=== PATIENT | male | born 1995 ===

== ENCOUNTER 2020-09-05 09:51 | Outpatient (CLI) | payer OTHER ==
[2020-09-05 11:20] VITALS: BP 126/92
--- NOTE | 2020-09-05 11:20 | SLEEP CARE CONSULTATION ---
Information from patient questionnaire entered by Laura Akhtar. I have reviewed and concur with the information entered by Laura Akhtar. This document represents the service I personally performed and the decisions made by me, Mendy Vega ARNP. History of Present Illness Service Date and Time: 09/05/2020 0951 Reason for Visit: New patient Chief Complaint: reports: Unrefreshed sleep, Snoring, Excessive daytime sleepiness, Observed pauses in breathing, Fatigue, Frequent awakenings at night Date of Onset: 5 years Usual bedtime: 9 pm Time it takes to fall asleep: 2-3 hours Snores at night: Yes Observed to quit breathing while asleep: Yes Sleeps alone due to snoring: Yes Number of times waking at night: 4-5 Reasons for waking at night: reports: Choking, Snoring, Bathroom Toss, Turn, or Twitch while sleeping: Yes Recalls having dreams: No Usually gets out of bed at: 5:30 am Feels refreshed in the morning: No Morning headache: Yes (headaches all the time since concussion) Sleepy or fatigued during the day: Yes Ever fallen asleep while driving: Yes (drowsy driving, no accidents) Takes day naps: No Dreams during day naps: No Prior sleep studies: No Additional HPI information: I had the pleasure of seeing DELANO MARCOS today regarding the possibility of him having a sleep disorder. His current complaints are snoring, observed pauses in breathing, frequent night awakenings, unrefreshed sleep, excessive daytime sleepiness and fatigue. His has told him he snores bad and she has seen him choke in his sleep. He is not usually sleeping in same room anymore due to his snoring. He takes 2-3 hours to get to sleep. He is working long hours for work but is unable to get restful sleep. - Parasomnia Symptoms Ever been unable to move upon waking from sleep: No Walks in sleep: No Talks in sleep: No Ever acted out dreams in sleep: No Ever felt weak in the knees when startled or emotional: Yes Bothered by creepy, crawly, restless sensations in legs: Yes (through the day) Problems with memory or concentration: Yes (sometimes forgets things) Subjective Initial [place] Sleepiness Scale score: 16 (in 2020) Past Medical History Past Medical History: reports: Other (back problems). denies: Hypertension, Diabetes, Arrythmia, Anxiety, Depression, Mood disorder, GERD, Attention deficit Social History The patient's occupation is a Active . Patient is and lives in [place]. Have you smoked in the past 12 months: No Alcohol use: Yes Alcohol amount and frequency: 2 drinks 1-2 times a week Caffeine use: No Family History Family history of sleep disordered breathing: No Family Hx Sleep Apnea: Father: Snoring Allergies and Home Medications Drug allergies reviewed: Yes (NKDA) Home medication list reviewed: Yes (migrain medication, possibly a -triptan, just started last week) Allergy and home medication list: Flexeril for back pain Review of Systems Weight gain over past 5 years: 30 Cardiovascular: reports: high blood pressure (at doctor's offices lately). denies: irregular heart rate or pulse Gastrointestinal: denies: heartburn Neurological: reports: headaches Psychiatric: denies: anxiety, depression Ear/Nose/Throat: reports: dry mouth/throat (wakes up dry and stays dry), wisdom teeth removed. denies: tonsillectomy (he is not sure) Musculoskeletal: reports: joint pain, neck pain, back pain, muscle pain or cramping Physical Exam Blood Pressure: 126/92 Cuff size: wrist Heart Rate: 72 O2 Saturation: 98 Height: 5 ft 7 in Weight: 184 lb Body Mass Index: 28.8 BMI Classification: Overweight Neck circumference: 16.25 (inches) Nostrils: patent to airflow Turbinates: swollen Mouth and throat: narrow oropharynx Uvula visualization: 50% Mallampati Class II Tongue: enlarged in size with teeth luciano on lateral edges Tonsils: small Chin and jaw: normal size and position Neck: normal w/o lymphadenopathy or thyromegaly Heart: regular rate and rhythm Lungs: clear bilaterally Impression and Plan 1. Suspected Obstructive Sleep Apnea-Hypopnea Syndrome, as previously diagnosed.suggested by a history of loud and irregular snoring, observed cessation of breath while asleep, gasping or choking in sleep, morning headache, frequent awakening during the night, unrefreshed sleep, cognitive impairment, and excessive daytime sleepiness. Narrow oropharynx and obesity are common predisposing factors for obstructive sleep apnea-hypopnea syndrome. I recommend proceeding to polysomnography to confirm the diagnosis and to assess severity. If the patient has significant sleep disordered breathing, a manual CPAP titration study will also be performed to find the optimal treatment pressure. I informed the patient of what the sleep studies involve and after some discussion, obtained agreement to proceed. The pathophysiology of obstructive sleep apnea-hypopnea syndrome was discussed with the patient and health risks of cardiovascular and cerebrovascular disease if not treated. [facility] brochure for obstructive sleep apnea-hypopnea syndrome given and reviewed. Risks of drowsy driving discussed in detail and patient advised to avoid long distance driving and to mold puller at the first sign of drowsiness. Patient agreed to plan. [facility] drowsy driving brochure given. * Schedule polysomnography +- manual CPAP titration study and return in 1-2 weeks after the study to discuss result and initiate therapy. * Avoid long distance driving or driving when feeling sleepy. * Avoid alcohol, sedative and muscle relaxant around bedtime. * Attempt to lose weight. * Review instructions provided by trained office staff on how to prepare for the sleep study. * Return for follow-up after sleep study completed. Counseling Topics: Weight loss health impact Visit Type: In Office Time Spent with Patient (minutes): 30 Provider Statement: I spent 100% of the Face to Face Visit with the patient with greater than 50% spent counseling the patient and coordination of care.
== END 2020-09-05 09:52 | disposition home or self-care (01) ==
LOC: SC 09:51
PROVIDERS: ATTEND Nurse Practitioner Family
DX: R06.83 Snoring (principal); E66.3 Overweight; Z68.28 Body mass index [BMI] 28.0-28.9, adult; R06.81 Apnea, not elsewhere classified; R51.9 Headache, unspecified; G47.8 Other sleep disorders; R41.89 Other symptoms and signs involving cognitive functions and awareness; G47.10 Hypersomnia, unspecified
CPT/HCPCS: 99203; 99212

== ENCOUNTER 2020-09-11 12:08 | Outpatient (CLI) | payer OTHER | END 2020-09-11 12:09 | disposition home or self-care (01) | LOC: SC 12:08 | PROVIDERS: ATTEND Nurse Practitioner Family | DX: G47.33 Obstructive sleep apnea (adult) (pediatric) (principal); E66.3 Overweight; Z68.28 Body mass index [BMI] 28.0-28.9, adult | CPT/HCPCS: 95806 ==

== ENCOUNTER 2020-09-17 13:05 | Outpatient (CLI) | payer OTHER ==
--- NOTE | 2020-09-17 13:40 | SLEEP CARE CONSULTATION ---
Information from patient questionnaire entered by Bobbi Hansen. I have reviewed and concur with the information entered by Bobbi Hansen. This document represents the service I personally performed and the decisions made by me, Mendy Vega ARNP. History of Present Illness Service Date and Time: 09/17/2020 1305 Initial [place] Sleepiness Scale score: 16 (in 2020) Current [place] Sleepiness Scale score: 13 Additional HPI information: DELANO MARCOS returns for follow up and results of the recently performed home sleep study. I explained the pathophysiology behind obstructive sleep apnea. We then spent quite a bit of time discussing different treatment options. For mild obstructive sleep apnea, surgery and oral appliance are alternatives to nasal CPAP therapy but in moderate or severe cases, nasal CPAP is the most effective and reliable treatment. Because apnea is primarily in supine position, then positional management therapy could be effective. Methods discussed such as positioning with pillows, using a T-shirt with tennis balls in the back, and shown commercial products that have a pillow format on back to prevent supine sleep. I reviewed the impact of weight changes on sleep apnea and strongly recommended losing weight. After some discussion, the patient opted to go with the nasal CPAP therapy. Nasal autoCPAP set at 4-15 cmH20 will be ordered with rationale explained. A manual titration study will be ordered if unable to find optimal pressure with office adjustments. I explained how CPAP machine works with sample devices Respironics Dreamstation and [employer] [id number] and what to expect when using the machine. Using CPAP every night in order to get used to it was emphasized. Patient advised to put CPAP mask on before getting into bed so as not to fall asleep without CPAP. To assist acclimation to CPAP use, it could also be used for a short time during day while reading or watching TV. The patient was instructed to call the CPAP supplier to discuss any mechanical problem that may occur. If the mask given is uncomfortable or is difficult to keep on through the night even with adjustment, contact the CPAP supplier as many will replace with another mask style if notified before 30 days. If snoring or perceives is not getting enough air or too much air from the machine, notify this office. [facility] patient education PAP tips reviewed and given to patient. Patient counseled not drink alcohol less than 4 hours before bedtime as it can increase snoring and apnea. Patient was cautioned about risks of drowsy driving until sleepiness symptoms resolve. Sleep Study - Results Type of Sleep Study: Home sleep study Prior sleep studies: No Polysomnography/Home Sleep Study results: Physician Impression: The quality of the study is good. The length of the study is adequate (> 240 minutes). Please also see the tabulated and graphic data. 1. Obstructive Sleep Apnea-Hypopnea (ICD-10 G47.33), mild, with an AHI of 8.1/hr and ingris SaO2 of 87%. During the study, the patient had 33 apneas (33 obstructive, 0 central, 0 mixed) and 37 hypopneas. The longest episode lasted 78.5 seconds. The respiratory events occurred more frequently during supine sleep (supine AHI was 10.2 and non-supine, 5.94). 2. Hypoxemia (ICD-10 R09.02), mild, with the lowest oxygen saturation of 87 % and 0.0 minutes with SaO2 under 90%. Baseline oxygen saturation was normal (Average oxygen saturation was 94%). Allergies and Home Medications Home medication list reviewed: Yes (Flexeril for his back) Review of Systems Review of systems same as previous: Yes (no changes) Physical Exam Heart Rate: 79 O2 Saturation: 98 Height: 5 ft 7 in Weight: 190 lb Body Mass Index: 29.7 BMI Classification: Overweight Impression and Plan 1. Obstructive Sleep Apnea-Hypopnea Syndrome, mild, with lowest oxygen saturatio n of 87%. Obviously this is the cause of the patients symptoms of unrefreshed sleep, and excessive daytime sleepiness. Positive pressure therapy could benefit his overall health and reduce cardiovascular or cerebrovascular adverse events. As mentioned above, the patient will be started on nasal autoCPAP therapy with pressure set at 4-15 cmH2O. A manual titration study will be completed if unable to find optimal treatment pressure with office adjustments. Compliance guidelines also reviewed. A copy of compliance guidelines will be given for reference at check out. Because the apnea is more severe supine, I instructed to avoid sleeping supine using pillow positioning until able to start CPAP use. * Nasal auto CPAP therapy, pressure at 4-15 cm H2O. * Attempt to lose weight. * Avoid alcohol consumption near bedtime. * Avoid supine sleep until using CPAP. * The patient is again cautioned about driving until sleepiness completely resolves. * Return one month after CPAP obtained. I will assess response to therapy and compliance at that time. Counseling Topics: Weight loss health impact Visit Type: In Office Time Spent with Patient (minutes): 20 Provider Statement: I spent 100% of the Face to Face Visit with the patient with greater than 50% spent counseling the patient and coordination of care.
== END 2020-09-17 13:06 | disposition home or self-care (01) ==
LOC: SC 13:05
PROVIDERS: ATTEND Nurse Practitioner Family
DX: G47.33 Obstructive sleep apnea (adult) (pediatric) (principal); E66.3 Overweight; Z68.29 Body mass index [BMI] 29.0-29.9, adult
CPT/HCPCS: 99212; 99213

== ENCOUNTER 2020-10-07 08:47 | Outpatient (CLI) | payer OTHER ==
--- NOTE | 2020-10-07 11:51 | MRI Report ---
PROCEDURE: Lumbar Spine W/O INDICATIONS: DORSALGIA TECHNIQUE: Noncontrast sagittal T1 spin echo and T2 fast echo, sagittal STIR, axial T1 and T2 fast spin echo thr ough the lumbar spine. In cases with scoliosis, additional coronal T2 fast spin echo may be performe d. COMPARISON: None. FINDINGS: Image quality: Excellent. Alignment and Curvature: No plain films are available for comparison. Thus, for numbering purposes, 5 lumbar type vertebral bodies will be presumed for the current report. This should be confirmed with plain film correlation prior to any lumbar spinal intervention. There is loss of normal lumbar lordo sis. Bone Marrow: Marrow is of normal overall signal. No acute vertebral body compression fractures. L1 hemangioma. L3 hemangioma. S2 hemangioma. Spinal Cord: Conus medullaris terminates at the L1-L2 disc space level. Visualized cord demonstrate s normal signal and size. Paraspinous Soft Tissues: No paravertebral masses. T12-L1: Normal in appearance. L1-L2: Normal in appearance. L2-L3: Normal in appearance. L3-L4: Normal in appearance. L4-L5: Normal in appearance. L5-S1: Normal in appearance. IMPRESSION: 1. Loss of normal lumbar lordosis, which may indicate muscle spasm. 2. No significant canal, nor foraminal stenosis. No neural impingement. Reviewed by: Tylor Franco MD on 10/07/2020 10:50 AM [place] Approved by: Tylor Franco MD on 10/07/2020 10:50 AM [facility] Station ID: [id number]
== END 2020-10-07 08:48 | disposition home or self-care (01) ==
LOC: DI 08:47
PROVIDERS: ATTEND Family Medicine
DX: M54.9 Dorsalgia, unspecified (principal); I10 Essential (primary) hypertension

== ENCOUNTER 2020-12-09 13:32 | Outpatient (CLI) | payer OTHER ==
--- NOTE | 2020-12-09 14:00 | SLEEP CARE CONSULTATION ---
Information from patient questionnaire entered by Bobbi Hansen. I have reviewed and concur with the information entered by Bobbi Hansen. This document represents the service I personally performed and the decisions made by me, Mendy Vega ARNP. History of Present Illness Service Date and Time: 12/09/2020 1332 Previous diagnosis: Mild, Obstructive Sleep Apnea-Hypopnea Syndrome AHI: 8.1 Reason for follow up: first compliance (Setup 11/05/20) Equipment type: CPAP Equipment obtained from: Other ([facility]; getting supplies as needed) Mask style: Full face Backup mask available: No (encouraged to keep old mask when replaced) Last cushion change: 1 month Prior sleep studies: No Year and Where: 2020 [facility] Type of Sleep Study: Home sleep study HPI additional information: DELANO MARCOS was diagnosed to have mild, AHI 8.1, obstructive sleep apnea- hypopnea syndrome and returned today for CPAP therapy first compliance follow- up. CPAP Compliance Data - Data Reviewed with Patient Average duration of nightly device use: 5 h 18 min Compliance rate %: 70 Current pressure setting (cmH2O): 4-15 (median 5.4, avg 8.1, max 9.4) Average residual AHI: 1.3 Subjective Missed days of use due to: reports: mask issues, travel Patient concerns: reports: condensation in mask/hose (only happened once), dry mouth, nose, throat. denies: aerophagia, mask discomfort, air blowing in eyes, mask leak noise, nasal congestion, epistaxis Observed to snore while using device: No Current pressure setting perceived as: comfortable On therapy, patient: reports: sleeping better, awakening more refreshed, being more awake and alert during the day, more rested overall. denies: drowsiness while driving Initial [place] Sleepiness Scale score: 16 (in 2020) Current [place] Sleepiness Scale score: 14 Allergies and Home Medications Home medication list reviewed: Yes (no changes) Review of Systems Review of systems same as previous: No (CT scan of nose, has deviated septum) Physical Exam Vital signs obtained and entered by: Heart Rate: 84 O2 Saturation: 98 Height: 5 ft 7 in Weight: 180 lb Body Mass Index: 28.1 BMI Classification: Overweight Impression and Plan 1. Obstructive Sleep Apnea-Hypopnea Syndrome, mild, with fair treatment compliance at 70% and good apnea control. On CPAP therapy, the patient has better sleep quality and is more rested overall. I will adjust his pressure to reflect what he is using to 6-9 cmH2O. He is getting used to wearing the mask at night but sometimes he just forgets to put it on before he falls asleep. He had one night when he got some water dripping into his mouth but this has not reoccurred. He does wake up with some dry mouth most mornings. Oral dryness can be reduced by adjusting humidity setting higher or heated hose lower or by adjusting both settings. Verbal instructions given on how to change humidity and heated hose settings with rationale explaining why to change. He voiced understanding and agreement with plan of care. Patient's apnea severity and rationale for treatment to reduce apnea, improve sleep quality and reduce cardiovascular and cerebrovascular events was reviewed. * Change autoCPAP pressure to 6-9 cmH2O * Notify me if snoring with mask or feeling that the pressure is too much or too little * Attempt to lose weight * Call this office if any problems using CPAP * Return for follow up in 1-2 months, or sooner if concerns arise Counseling Topics: Spare mask, Weight loss health impact Visit Type: In Office Time Spent with Patient (minutes): 21 Provider Statement: I spent 100% of the Face to Face Visit with the patient with greater than 50% spent counseling the patient and coordination of care.
== END 2020-12-09 13:33 | disposition home or self-care (01) ==
LOC: SC 13:32
PROVIDERS: ATTEND Nurse Practitioner Family
DX: G47.33 Obstructive sleep apnea (adult) (pediatric) (principal); E66.3 Overweight; Z68.28 Body mass index [BMI] 28.0-28.9, adult
CPT/HCPCS: 99212; 99213

== ENCOUNTER 2021-01-13 13:52 | Outpatient (CLI) | payer OTHER ==
--- NOTE | 2021-01-13 14:37 | SLEEP CARE CONSULTATION ---
Information from patient questionnaire entered by Laura Akhtar. I have reviewed and concur with the information entered by Laura Akhtar. This document represents the service I personally performed and the decisions made by me, Mendy Vega ARNP. History of Present Illness Service Date and Time: 01/13/2021 1352 Previous diagnosis: Mild, Obstructive Sleep Apnea-Hypopnea Syndrome AHI: 8.1 (in 2020) Reason for follow up: one month (with pressure change) Equipment type: CPAP Equipment obtained from: Other ([facility]; getting supplies as needed) Mask style: Full face Backup mask available: Yes (other mask) Prior sleep studies: Yes Year and Where: 2020 - [facility] Type of Sleep Study: Home sleep study HPI additional information: DELANO MARCOS was diagnosed to have mild, AHI 8.1, obstructive sleep apnea- hypopnea syndrome and returned today for CPAP therapy one month pressure change follow-up. CPAP Compliance Data - Data Reviewed with Patient Average duration of nightly device use: 4 hr 9 min Compliance rate %: 23 Current pressure setting (cmH2O): 6-9 Humidity settin Average residual AHI: 1.9 Subjective Missed days of use due to: reports: travel (left at home when away for two we eks), other (his does not like it, getting tangled in hose) Patient concerns: reports: dry mouth, nose, throat (dry mouth, sometimes). denies: aerophagia, mask discomfort, air blowing in eyes, mask leak noise, condensation in mask/hose, nasal congestion, epistaxis, other Observed to snore while using device: No Current pressure setting perceived as: comfortable On therapy, patient: reports: sleeping better, awakening more refreshed, being more awake and alert during the day, more rested overall. denies: drowsiness while driving Initial [place] Sleepiness Scale score: 16 (in 2020) Current [place] Sleepiness Scale score: 12 Allergies and Home Medications Home medication list reviewed: Yes (no changes) Review of Systems Review of systems same as previous: Yes (no changes) Physical Exam Heart Rate: 94 O2 Saturation: 97 Height: 5 ft 7 in Weight: 179 lb Body Mass Index: 28.0 BMI Classification: Overweight Impression and Plan 1. Obstructive Sleep Apnea-Hypopnea Syndrome, mild, with poor treatment compliance and good apnea control. On CPAP therapy, the patient has better sleep quality and is more rested overall. His current compliance is reduced because he went on vacation for 2 weeks and did not take the CPAP. His is also not liking the machine because she gets tangled up in the house. He really likes the machine and wants to continue using it. He states he will bring his compliance up with problems in the next few weeks because his has just deployed for 9 months. Compliance guidelines reviewed for insurance coverage. Patient was counseled on the difference between meeting compliance and optimal use of CPAP. Optimal use of CPAP is use of CPAP with all sleep to obtain maximum benefit of treatment. Patient is encouraged to use CPAP with all sleep. He voiced understanding and agreement with plan of care. Patient's apnea severity and rationale for treatment to reduce apnea, improve sleep quality and reduce cardiovascular and cerebrovascular events was reviewed. * Continue auto CPAP pressure at 6-9 cmH2O * Notify me if snoring with mask or feeling that the pressure is too much or too little * Attempt to lose weight * Call this office if any problems using CPAP * Return for follow up in 1-2 months, or sooner if concerns arise Counseling Topics: Spare mask, Weight loss health impact Visit Type: In Office Time Spent with Patient (minutes): 13 Provider Statement: I spent 100% of the Face to Face Visit with the patient with greater than 50% spent counseling the patient and coordination of care.
== END 2021-01-13 13:53 | disposition home or self-care (01) ==
LOC: SC 13:52
PROVIDERS: ATTEND Nurse Practitioner Family
DX: G47.33 Obstructive sleep apnea (adult) (pediatric) (principal); E66.3 Overweight; Z68.28 Body mass index [BMI] 28.0-28.9, adult
CPT/HCPCS: 99212

== ENCOUNTER 2021-02-24 13:44 | Outpatient (CLI) | payer OTHER ==
--- NOTE | 2021-02-24 14:15 | SLEEP CARE CONSULTATION ---
Information from patient questionnaire entered by Laura Akhtar. I have reviewed and concur with the information entered by Laura Akhtar. This document represents the service I personally performed and the decisions made by , Mendy Vega ARNP. History of Present Illness Service Date and Time: 02/24/2021 1344 Previous diagnosis: Mild, Obstructive Sleep Apnea-Hypopnea Syndrome AHI: 8.1 (in 2020) Reason for follow up: other (6 week) Equipment type: CPAP Equipment obtained from: Other ([facility]; getting supplies as needed) Mask style: Nasal Backup mask available: No (will need to keep old mask when replaced) Last cushion change: 1 week ago Prior sleep studies: Yes Year and Where: 2020 - [facility] Type of Sleep Study: Home sleep study HPI additional information: DELANO MARCOS was diagnosed to have mild, AHI 8.1, obstructive sleep apnea- hypopnea syndrome and returned today for CPAP therapy 6 week follow-up. CPAP Compliance Data - Data Reviewed with Patient Average duration of nightly device use: 4 hr 4 min Compliance rate %: 38 (42 days) Current pressure setting (cmH2O): 6-9 (median 6.7, avg 8.3, max 8.8) Humidity settin Average residual AHI: 6.2 Central apnea: 0.6 Obstructive apnea: 1.9 Subjective Missed days of use due to: reports: mask issues Patient concerns: reports: condensation in mask/hose (3 times ), dry mouth, nose, throat. denies: aerophagia, mask discomfort, air blowing in eyes, mask leak noise, nasal congestion, epistaxis, other Observed to snore while using device: No Current pressure setting perceived as: comfortable On therapy, patient: reports: sleeping better, awakening more refreshed, being more awake and alert during the day, more rested overall. denies: drowsiness while driving Initial [place] Sleepiness Scale score: 16 (in 2020) Current [place] Sleepiness Scale score: 13 Allergies and Home Medications Home medication list reviewed: Yes (no changes) Review of Systems Review of systems same as previous: No (deviated nasal septum and then tonsillectomy planned) Physical Exam Heart Rate: 93 O2 Saturation: 98 Height: 5 ft 7 in Weight: 179 lb Body Mass Index: 28.0 BMI Classification: Overweight Impression and Plan 1. Obstructive Sleep Apnea-Hypopnea Syndrome, mild, with poor treatment compliance and fair apnea control with mild elevation of residual AHI. On CPAP therapy, the patient has better sleep quality and is more rested overall. The patients pressure will be changed to autoCPAP 7-10 cmH20 for elevation of residual AHI. Patient advised to contact me if pressure change is uncomfortable so that it can be adjusted. Goals for apnea control discussed. Patient is trying to control portions and increase activity to try to lose wieght. He would like to reach about 153 pounds. I advised him to concentrate on nutritionally dense foods and exercise to lose weight. He voiced understanding. Patient's apnea severity and rationale for treatment to reduce apnea, improve sleep quality and reduce cardiovascular and cerebrovascular events was reviewed. * Change auto CPAP pressure to 7-10 cmH2O * Notify me if snoring with mask or feeling that the pressure is too much or too little * Attempt to lose weight * Call this office if any problems using CPAP * Return for follow up in 1-2 months, or sooner if concerns arise Counseling Topics: Spare mask, Weight loss health impact Visit Type: In Office Time Spent with Patient (minutes): 17 Provider Statement: I spent 100% of the Face to Face Visit with the patient with greater than 50% spent counseling the patient and coordination of care.
== END 2021-02-24 13:45 | disposition home or self-care (01) ==
LOC: SC 13:44
PROVIDERS: ATTEND Nurse Practitioner Family
DX: G47.33 Obstructive sleep apnea (adult) (pediatric) (principal)
CPT/HCPCS: 99212

== ENCOUNTER 2021-03-27 09:48 | Outpatient (CLI) | payer OTHER ==
--- NOTE | 2021-03-27 10:25 | SLEEP CARE CONSULTATION ---
Information from patient questionnaire entered by Laura Akhtar. I have reviewed and concur with the information entered by Laura Akhtar. This document represents the service I personally performed and the decisions made by me, Mendy Vega ARNP. History of Present Illness Service Date and Time: 03/27/2021 0948 Previous diagnosis: Mild, Obstructive Sleep Apnea-Hypopnea Syndrome AHI: 8.1 (in 2020) Reason for follow up: one month (with pressure change) Equipment type: CPAP Equipment obtained from: Other ([facility]; getting supplies as needed) Mask style: Full face Backup mask available: Yes (old mask) Last cushion change: 6 weeks ago Prior sleep studies: Yes Year and Where: 2020 - [facility] Type of Sleep Study: Home sleep study HPI additional information: DELANO MARCOS was diagnosed to have mild, AHI 8.1, obstructive sleep apnea- hypopnea syndrome and returns via Telehealth visit today for CPAP therapy one month with pressure change follow-up. CPAP Compliance Data - Data Reviewed with Patient Average duration of nightly device use: 3 hr 52 min Compliance rate %: 20 Current pressure setting (cmH2O): 7-10 Humidity settin Average residual AHI: 3.6 Subjective Missed days of use due to: reports: illness (got Covid and stopped using device to keep from contaminating device) Patient concerns: reports: mask discomfort (using full face; will not seal well and wants to change to nasal mask when able). denies: aerophagia, air blowing in eyes, mask leak noise, condensation in mask/hose, nasal congestion, dry mouth, nose, throat, epistaxis Observed to snore while using device: No Current pressure setting perceived as: comfortable On therapy, patient: reports: sleeping better, awakening more refreshed, being more awake and alert during the day, more rested overall. denies: drowsiness while driving Initial [place] Sleepiness Scale score: 16 (in 2020) Current [place] Sleepiness Scale score: 11 Allergies and Home Medications Home medication list reviewed: Yes (no changes) Review of Systems Review of systems same as previous: No (Covid positive - 20 March) Physical Exam Vital signs obtained and entered by: Telehealth visit to reduce exposure during Covid pandemic Height: 5 ft 7 in Impression and Plan 1. Obstructive Sleep Apnea-Hypopnea Syndrome, mild, with poor treatment compliance and good apnea control. On CPAP therapy, the patient has better sleep quality and is more rested overall. Patient was positive for Covid illness on March 20. He stopped using his CPAP because he did not want to contaminate his machine and supplies. He intends to resume CPAP use when he test negative. Patient also wants to get supplies replaced before he resumes CPAP use. Patient's apnea severity and rationale for treatment to reduce apnea, improve sleep quality and reduce cardiovascular and cerebrovascular events was reviewed. * Continue auto CPAP pressure at 7-10 cmH2O * Notify me if snoring with mask or feeling that the pressure is too much or too little * Attempt to lose weight * Call this office if any problems using CPAP * Return for follow up in 1-2 months, or sooner if concerns arise Counseling Topics: Spare mask, Weight loss health impact Visit Type: Telehealth Video Video Type: VSee Patient Location: Home Location of Provider: Office Patient agrees and consents to this telehealth visit type: Yes Patient agrees to have their insurance billed: Yes Time Spent with Patient (minutes): 20 Provider Statement: I spent 100% of the Telehealth Video Call with the patient with greater than 50% spent counseling the patient and coordination of care.
== END 2021-03-27 09:49 | disposition home or self-care (01) ==
LOC: SC 09:48
PROVIDERS: ATTEND Nurse Practitioner Family
DX: G47.33 Obstructive sleep apnea (adult) (pediatric) (principal)

== ENCOUNTER 2021-06-03 13:50 | Outpatient (CLI) | payer OTHER ==
--- NOTE | 2021-06-03 14:06 | SLEEP CARE CONSULTATION ---
Information from patient questionnaire entered by Lisa Russell. I have reviewed and concur with the information entered by Lisa Russell. This document represents the service I personally performed and the decisions made by me, Mendy Vega ARNP. History of Present Illness Service Date and Time: 06/03/2021 1400 Previous diagnosis: Mild, Obstructive Sleep Apnea-Hypopnea Syndrome AHI: 8.1 (in 2020) Reason for follow up: other (2 month) Equipment type: CPAP Equipment obtained from: Other ([facility]; getting supplies as needed) Mask style: Nasal pillows Mask brand: Respironics Backup mask available: Yes (other mask) Last cushion change: 2 weeks Prior sleep [facility]: Yes [facility] Type of Sleep Study: Home sleep study HPI additional information: DELANO MARCOS was diagnosed to have mild, AHI 8.1, obstructive sleep apnea- hypopnea syndrome and returns via video telehealth visit today for CPAP therapy two month follow-up. Sleep Study - Results Type of Sleep Study: Home sleep study Prior sleep studies: Yes Year and [facility] CPAP Compliance Data - Data Reviewed with Patient Average duration of nightly device use: 3 hours 8 minutes Compliance rate %: 23 Current pressure setting (cmH2O): 7-10 (median 7.3, avg 8.5, max 9.1) Average residual AHI: 2.6 Central apnea: .3 Obstructive apnea: 1.1 Hypopnea: .2 Subjective Patient concerns: reports: mask discomfort (changed mask to nasal pillows, pressure feels to high). denies: aerophagia, air blowing in eyes, mask leak noise, condensation in mask/hose, nasal congestion, dry mouth, nose, throat, epistaxis, other Observed to snore while using device: No Current pressure setting perceived as: too high On therapy, patient: reports: sleeping better, awakening more refreshed, being more awake and alert during the day, more rested overall. denies: drowsiness while driving Initial [place] Sleepiness Scale score: 16 (in 2020) Current [place] Sleepiness Scale score: 14 Allergies and Home Medications Home medication list reviewed: Yes (no changes) Review of Systems Review of systems same as previous: Yes (no changes) Physical Exam Vital signs obtained and entered by: Telehealth visit to reduce exposure during Covid pandemic Height: 5 ft 7 in Impression and Plan 1. Obstructive Sleep Apnea-Hypopnea Syndrome, mild, with poor treatment compliance and good apnea control. On CPAP therapy, the patient has better sleep quality and is more rested overall. Patient changed from a full face to a nasal pillows mask and states the pressure feels like it is too high. I reviewed his pressure usage. The patients pressure will be changed to autoCPAP 6-7.5 cmH20 for patient comfort. Patient advised to contact me if pressure change is uncomfortable so that it can be adjusted. Goals for apnea control discussed. Patient's apnea severity and rationale for treatment to reduce apnea, improve s leep quality and reduce cardiovascular and cerebrovascular events was reviewed. * Change auto CPAP pressure to 6-7.5 cmH2O * Notify me if snoring with mask or feeling that the pressure is too much or too little * Call this office if any problems using CPAP * Return for follow up in 1-2 months, or sooner if concerns arise Counseling Topics: Spare mask Visit Type: In Office Patient Location: Home Location of Provider: Office Patient agrees and consents to this telehealth visit type: Yes Patient agrees to have their insurance billed: Yes Time Spent with Patient (minutes): 16 Provider Statement: I spent 100% of the Face to Face Visit with the patient with greater than 50% spent counseling the patient and coordination of care.
== END 2021-06-03 13:51 | disposition home or self-care (01) ==
LOC: SC 13:50
PROVIDERS: ATTEND Nurse Practitioner Family
DX: G47.33 Obstructive sleep apnea (adult) (pediatric) (principal)

== ENCOUNTER 2021-07-17 14:07 | Outpatient (CLI) | payer OTHER ==
--- NOTE | 2021-07-17 14:22 | SLEEP CARE CONSULTATION ---
Information from patient questionnaire entered by Milan De La Rosa MA. I have reviewed and concur with the information entered by Milan De La Rosa MA. This document represents the service I personally performed and the decisions made by , Mendy Vega ARNP. History of Present Illness Service Date and Time: 07/17/2021 1407 Previous diagnosis: Mild, Obstructive Sleep Apnea-Hypopnea Syndrome AHI: 8.1 (in 2020) Reason for follow up: other (TWO MONTH FOLLOW UP) Equipment type: CPAP Equipment obtained from: Other ([facility]; getting supplies as needed) Mask style: Nasal Backup mask available: Yes (other mask) Last cushion change: 2 weeks ago Prior sleep studies: Yes Year and Where: 2020 - [facility] Type of Sleep Study: Home sleep study HPI additional information: DELANO MARCOS was diagnosed to have mild, AHI 8.1, obstructive sleep apnea- hypopnea syndrome and returns via video Telehealth visit today for CPAP therapy two month follow-up. Sleep Study - Results Type of Sleep Study: Home sleep study [facility]: Yes [facility] CPAP Compliance Data - Data Reviewed with Patient Average duration of nightly device use: 3 HOURS 0 MINUTES Compliance rate %: 20 Current pressure setting (cmH2O): 6-7.4 Average residual AHI: 1.8 Central apnea: .3 Obstructive apnea: .6 Subjective Missed days of use due to: reports: family emergency (grandfather's illness and due to Covid), travel (to [place] to see grandfather) Patient concerns: denies: aerophagia, mask discomfort, air blowing in eyes, mask leak noise, condensation in mask/hose, nasal congestion, dry mouth, nose, throat, epistaxis, other Observed to snore while using device: No Current pressure setting perceived as: comfortable On therapy, patient: reports: sleeping better, awakening more refreshed, being more awake and alert during the day, more rested overall. denies: drowsiness while driving Initial [place] Sleepiness Scale score: 16 (in 2020) Current [place] Sleepiness Scale score: 13 Allergies and Home Medications Home medication list reviewed: Yes (no changes) Review of Systems Review of systems same as previous: No (has Covid ) Physical Exam Vital signs obtained and entered by: Telehealth visit to reduce exposure during covid pandemic Height: 5 ft 7 in Impression and Plan 1. Obstructive Sleep Apnea-Hypopnea Syndrome, mild, with poor treatment compliance and good apnea control. On CPAP therapy, the patient has better sleep quality and is more rested overall. He was called back to [place] because his grandfather was dying and he . He came back a few days ago and has tested positive for Covid. He forgot to take his CPAP with him. He restarted using his device when he returned 2 days ago. He knows he needs to increase his compliance as we have discussed at previous visits. Compliance guidelines reviewed for insurance coverage. Patient was counseled on the difference between meeting compliance and optimal use of CPAP. Optimal use of CPAP is use of CPAP with all sleep to obtain maximum benefit of treatment. Patient is encouraged to use CPAP with all sleep. Patient's apnea severity and rationale for treatment to reduce apnea, improve sleep quality and reduce cardiovascular and cerebrovascular events was reviewed. Patient was encouraged to lose weight for their overall health and to reduce apneas. * Continue auto CPAP pressure at 6-7.4 cmH2O * Notify me if snoring with mask or feeling that the pressure is too much or too little * Attempt to lose weight * Call this office if any problems using CPAP * Return for follow up in 2 months, or sooner if concerns arise Counseling Topics: Spare mask, Weight loss health impact Visit Type: Telehealth Video Patient Location: Home Location of Provider: Office Patient agrees and consents to this telehealth visit type: Yes Patient agrees to have their insurance billed: Yes Time Spent with Patient (minutes): 14 Provider Statement: I spent 100% of the Telehealth Video Call with the patient with greater than 50% spent counseling the patient and coordination of care.
== END 2021-07-17 14:08 | disposition home or self-care (01) ==
LOC: SC 14:07
PROVIDERS: ATTEND Nurse Practitioner Family
DX: G47.33 Obstructive sleep apnea (adult) (pediatric) (principal)

== ENCOUNTER 2021-09-18 14:53 | Outpatient (CLI) | payer OTHER ==
--- NOTE | 2021-09-18 15:07 | SLEEP CARE CONSULTATION ---
Information from patient questionnaire entered by Milan De La Rosa MA. I have reviewed and concur with the information entered by Milan De La Rosa MA. This document represents the service I personally performed and the decisions made by , Mendy Vega ARNP. History of Present Illness Service Date and Time: 09/18/2021 1440 Previous diagnosis: Mild, Obstructive Sleep Apnea-Hypopnea Syndrome AHI: 8.1 (in 2020) Reason for follow up: other (2 MONTH F/U) Equipment type: CPAP Equipment obtained from: Other ([facility]; getting supplies as needed) Mask style: Nasal pillows Backup mask available: Yes (old mask) Last cushion change: 1.5 weeks Prior sleep studies: Yes Year and Where: 2020 - [facility] Type of Sleep Study: Home sleep study HPI additional information: DELANO MARCOS was diagnosed to have mild, AHI 8.1, obstructive sleep apnea- hypopnea syndrome and returns via video Telehealth visit today for CPAP therapy 2 month follow-up. Sleep Study - Results Type of Sleep Study: Home sleep study Prior [facility]: Yes [facility] Compliance Data - Data Reviewed with Patient Average duration of nightly device use: 3 HOURS 34 MINUTES Compliance rate %: 37 Current pressure setting (cmH2O): 6-7.4 Average residual AHI: 3.5 Central apnea: 0.4 Obstructive apnea: 2.6 Average large leak: 4.8 Subjective Missed days of use due to: reports: illness, other (stress and not able to sleep at night) Patient concerns: denies: aerophagia, mask discomfort, air blowing in eyes, mask leak noise, condensation in mask/hose, nasal congestion, dry mouth, nose, throat, epistaxis, other Observed to snore while using device: No Current pressure setting perceived as: comfortable On therapy, patient: reports: sleeping better, awakening more refreshed, being more awake and alert during the day, more rested overall. denies: drowsiness while driving Initial [place] Sleepiness Scale score: 16 (in 2020) Current [place] Sleepiness Scale score: 13 Allergies and Home Medications Home medication list reviewed: Yes (no changes) Review of Systems Review of systems same as previous: No (Covid for 2nd time) Physical Exam Vital signs obtained and entered by: telehealth visit to reduce exposure during covid pandemic Height: 5 ft 7 in Impression and Plan 1. Obstructive Sleep Apnea-Hypopnea Syndrome, mild, with poor treatment compliance and good apnea control. On CPAP therapy, the patient has better sleep quality and is more rested overall. He has been improving his compliance but he got Covid again and had difficulty using his CPAP at that time. He also has had some increase in stress that causes insomnia. Some nights he will not be able to sleep for but a few hours. He is still determined to improve his compliance and will work on wearing the mask more. I will follow up with him in 1-2 months. Compliance guidelines reviewed for insurance coverage. Patient was counseled on the difference between meeting compliance and optimal use of CPAP. Optimal use of CPAP is use of CPAP with all sleep to obtain maximum benefit of treatment. Patient is encouraged to use CPAP with all sleep. Patient's apnea severity and rationale for treatment to reduce apnea, improve sleep quality and reduce cardiovascular and cerebrovascular events was reviewed. * Continue auto CPAP pressure at 6-7.4 cmH2O * Notify me if snoring with mask or feeling that the pressure is too much or too little * Attempt to lose weight * Call this office if any problems using CPAP * Return for follow up in 1-2 months, or sooner if concerns arise Counseling Topics: Spare mask, Weight loss health impact Visit Type: Telehealth Video Video Type: [place] Patient Location: Home Location of Provider: Office Patient agrees and consents to this telehealth visit type: Yes Patient agrees to have their insurance billed: Yes Time Spent with Patient (minutes): 15 Provider Statement: I spent 100% of the Telehealth Video Call with the patient with greater than 50% spent counseling the patient and coordination of care.
== END 2021-09-18 14:54 | disposition home or self-care (01) ==
LOC: SC 14:53
PROVIDERS: ATTEND Nurse Practitioner Family
DX: G47.33 Obstructive sleep apnea (adult) (pediatric) (principal)

== ENCOUNTER 2021-12-22 12:53 | Outpatient (CLI) | payer OTHER ==
[2021-12-22 13:27] VITALS: BP 130/86
--- NOTE | 2021-12-22 13:27 | SLEEP CARE CONSULTATION ---
Information from patient questionnaire entered by Milan De La Rosa MA. I have reviewed and concur with the information entered by Milan De La Rosa MA. This document represents the service I personally performed and the decisions made by , Mendy Vega ARNP. History of Present Illness Service Date and Time: 12/22/2021 1253 Previous diagnosis: Mild, Obstructive Sleep Apnea-Hypopnea Syndrome AHI: 8.1 (in 2020) Reason for follow up: three month (RESMED, ) Equipment type: CPAP Equipment obtained from: Other ([facility]; getting supplies as needed) Mask style: Nasal pillows Backup mask available: Yes (old mask) Last cushion change: 1 month Prior sleep studies: Yes Year and Where: 2020 - [facility] Type of Sleep Study: Home sleep study HPI additional information: DELANO MARCOS was diagnosed to have mild, AHI 8.1, obstructive sleep apnea- hypopnea syndrome and returned today for CPAP therapy three month follow-up. Sleep Study - Results Type of Sleep Study: Home sleep study Prior sleep studies: Yes Year and Where: 2020 - [facility] CPAP Compliance Data - Data Reviewed with Patient Average duration of nightly device use: 3 HOURS 30 MINUTES Compliance rate %: 31 (90 days) Current pressure setting (cmH2O): 6-7.4 Average residual AHI: 2.8 Central apnea: 0.2 Obstructive apnea: 1.3 Average large leak: 7.8 Compliance data discussion: He states he is getting and is now sleeping at friend's houses and trying to use CPAP when he can. He is moving back to [place] in about a week. This is a permanent move. Subjective Missed days of use due to: reports: travel (), other (mask will come off face at night) Patient concerns: denies: aerophagia, mask discomfort, air blowing in eyes, mask leak noise, condensation in mask/hose, nasal congestion, dry mouth, nose, throat, epistaxis, other Observed to snore while using device: No Current pressure setting perceived as: comfortable On therapy, patient: reports: sleeping better, awakening more refreshed, being more awake and alert during the day, more rested overall. denies: drowsiness while driving Initial [place] Sleepiness Scale score: 16 (in 2020) Current [place] Sleepiness Scale score: 16 (12/2021) Allergies and Home Medications Known drug allergies: No Drug allergies reviewed: Yes Home medication list reviewed: Yes (no changes) Review of Systems Review of systems same as previous: Yes (no changes) Physical Exam Vital signs obtained and entered by: OMAR WARD Blood Pressure: 130/86 (PULSE 109, RESP 20, RIGHT) Heart Rate: 108 O2 Saturation: 97 (PAPER MASK) Height: 5 ft 7 in Weight: 179 lb Body Mass Index: 28.0 BMI Classification: Overweight Impression and Plan 1. Obstructive Sleep Apnea-Hypopnea Syndrome, mild, with poor treatment compliance and good apnea control. On CPAP therapy, the patient has better sleep quality and is more rested overall. Patient states that he split up with his and moved out. He is getting a divorce. He is moving between friends' houses and trying to use his CPAP but it is difficult. He will still wake up with the mask off of his face. He states next week he is moving to [place], [place]. I advised that he establish care with a sleep provider there to monitor his sleep apnea therapy. He voiced understanding. He asks for a copy of his sleep study and a copy was printed for him after he signed a medical information release form. Patient denies problems with oral dryness, nasal congestion, epistaxis, skin irritation or aerophagia. He is comfortable with current pressure setting with significant improvement of his apnea. Patient's apnea severity and rationale for treatment to reduce apnea, improve sleep quality and reduce cardiovascular and cerebrovascular events was reviewed. * Continue auto CPAP pressure at 6-7.4 cmH2O * Notify me if snoring with mask or feeling that the pressure is too much or too little * Call this office if any problems using CPAP * Return for follow up as soon as able with a sleep provider, once he is established in new area, or sooner if concerns arise Counseling Topics: Weight loss health impact Visit Type: In Office Time Spent with Patient (minutes): 17 Provider Statement: I spent 100% of the Face to Face Visit with the patient with greater than 50% spent counseling the patient and coordination of care.
== END 2021-12-22 12:54 | disposition home or self-care (01) ==
LOC: SC 12:53
PROVIDERS: ATTEND Nurse Practitioner Family
DX: G47.33 Obstructive sleep apnea (adult) (pediatric) (principal)
CPT/HCPCS: 99212